=== PATIENT | female | born 1950 | race Caucasian/White ===

== ENCOUNTER 2018-05-08 20:52 | Inpatient (IN) | payer OTHER ==
--- OUTSIDE RECORDS SUMMARY | 2018-05-08 20:54 | XMS REPORT | Clinical Summary ---
:1950 Author Organization [facility] Address [address] [place] [address] Care Team Providers Name Role Phone Greg Dunn MD Primary Care Provider Allergies No Known Allergies Medications Medication Sig Dispensed Refills Start Date End Date Status docusate sodium Take 1 capsule (100 60 capsule 0 01/08/2018 02/07/2018 (COLACE) 100 MG mg total) by mouth capsule 2 (two) times a day as needed for constipation for up to 30 days. acetaminophen-cod Take 2 tablets by 10 tablet 0 01/08/2018 01/22/2018 eine (TYLENOL mouth every 6 (six) WITH CODEINE #3) hours as needed for 300-30 mg per moderate pain for tablet up to 14 days. ibuprofen Take 1 tablet (600 20 tablet 0 01/08/2018 02/07/2018 (ADVIL,MOTRIN) mg total) by mouth 600 MG tablet every 6 (six) hours as needed for mild pain for up to 30 days. Active Problems Problem Noted Date Endometrial adenocarcinoma 01/07/2018 Encounters Date Type Specialty Care Team Description 02/24/2018 Office Visit Gynecologic Sang Becerra MD Endometrial Oncology adenocarcinoma (HCC) 02/18/2018 Telephone Gynecologic Sang Becerra MD Oncology 02/15/2018 Hospital Encounter Radiation Oncology Wang Frederick MD 02/10/2018 Office Visit Gynecologic Sang Becerra MD Malignant neoplasm of Oncology uterus, unspecified site (HCC) (Primary Dx) 01/22/2018 Office Visit Gynecologic Sang Becerra MD Endometrial Oncology adenocarcinoma (HCC) 01/10/2018 Telephone Obstetrics and Sang Becerra MD Gynecology 01/10/2018 Patient Outreach Quality Alma Rosa Ventura MA 01/07/2018 Anesthesia Event Obstetrics and [facility] Gynecology Bev agustin NP 01/07/2018 Surgery Obstetrics and Sang Becerra MD ROBOTIC HYSTERECTOMY, Gynecology BILATERAL SALPINGO OOPHORECTOMY, BILATERAL PELVIC LYMPH NODE DISSECTION 01/07/2018 - Hospital Encounter Obstetrics and Sang Becerra MD Sarcoma, 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 Telephone Gynecologic Sang Becerra MD Oncology 01/02/2018 Hospital Encounter Radiology Sang Becerra MD Endometrial cancer (HCC) 01/02/2018 Pre-Admit Testing Pre-Admission Sang Becerra MD Pre-op testing Appointment Testing 12/25/2017 Office Visit Gynecologic Sang Becerra MD Endometrial cancer Oncology ([facility]) (Primary Dx) after 05/07/2017 Family History Medical History Relation Name Comments Lung cancer Father Colon cancer Mother Relation Name Status Comments Father Mother Social History Tobacco Use Types Packs/Day Years Used Date Never Smoker Smokeless Tobacco: Never Used Alcohol Use Drinks/Week oz/Week Comments No Sex Assigned at Date Recorded Not on file Job Start Date Occupation Industry Not on file Not on file Not on file Travel History Travel Start Travel End No recent travel history available. Last Filed Vital Signs Vital Sign Reading Time Taken Blood Pressure 144/84 02/24/2018 10:30 AM [employer]KE[employer] INSPECT[employer] Pulse 66 02/24/2018 10:30 AM [employer] INSPECT[employer] Temperature 36.6 C (97.9 F) 01/08/2018 7:48 AM CDT Respiratory Rate 19 01/08/2018 7:48 AM CDT Oxygen Saturation 97% 01/08/2018 7:48 AM CDT Inhaled Oxygen Concentration - - Weight 88.5 kg (195 lb) 02/24/2018 10:30 AM [employer]KEIN INSPECTOR Height 170.2 cm (5' 7") 01/22/2018 9:52 AM [employer]KEIN INSPECTOR Body Mass Index 30.54 02/24/2018 10:30 AM SKEIN INSPECTOR Plan of Treatment Date Type Specialty Care Team Description 06/23/2018 Office Visit Gynecologic Oncology Sang Becerra MD [address] [address] Health Maintenance Due Date Last Done Comments CERVICAL CANCER SCREENING 1973 BREAST CANCER SCREENING 2002 COLON CANCER SCREENING 2002 SHINGLES VACCINES (#1) 2002 65+ PNEUMOCOCCAL VACCINE (1 of 2 - PCV13) 2017 PNEUMOCOCCAL POLYSACCHARIDE VACCINE AGE 65 AND OVER 2017 INFLUENZA VACCINE 10/16/2017 Procedures Procedure Name Priority Date/Time Associated Comments Diagnosis ESTIMATED GFR Routine 01/08/2018 4:26 Results for this AM CDT procedure are in the results section. BASIC METABOLIC PANEL Routine 01/08/2018 4:26 Results for this AM CDT procedure are in the results section. CBC HEMOGRAM Routine 01/08/2018 4:26 Results for this AM CDT procedure are in the results section. SURGICAL PATHOLOGY Routine 01/07/2018 1:07 Results for this REQUEST PM CDT procedure are in the results section. SURGICAL PATHOLOGY Routine 01/07/2018 1:07 Results for this REQUEST PM CDT procedure are in the results section. MISCELLANEOUS REFERRAL Routine 01/07/2018 1:07 Results for this TEST PM CDT procedure are in the results section. SURGICAL PATHOLOGY Routine 01/07/2018 12:07 Results for this REQUEST PM CDT procedure are in the results section. MS AN ELECTIVE Routine 01/07/2018 11:10 ENDOTRACHEAL AIRWAY AM CDT Procedure Note - [place] Montero CRNA - 01/07/2018 11:10 AM CDT Airway Date/Time: 01/07/2018 10:32 AM Performed by: FLORIDA MONTERO Authorized by: FLORIDA MONTERO Location: OR Urgency: Elective Difficult Airway: No Anesthesiologist: PARAMJIT BOWMAN Resident/COMPUTER ENGINEERING TECHNOLOGIST/AA: FLORIDA MONTERO Performed by: resident/COMPUTER ENGINEERING TECHNOLOGIST/AA Preoxygenated with 100% O2: Yes Mask Ventilation: Easy mask Final Airway Type: Endotracheal airway Final Endotracheal Airway: ETT Cuffed: Yes Technique Used: Direct laryngoscopy Devices/Methods Used in Placement: Intubating stylet Insertion Site: Oral Blade Type: Levin Laryngoscope Blade/Videolaryngoscope Blade Size: 2 ETT Size (mm): 7.0 Cuff at minimum occlusion pressure: Yes Measured from: Lips ETT to Lips (cm): 22 Placement Verified by: CO2 detection and direct visualization Laryngoscopic view: Grade I - full view of glottis Rapid Sequence Induction (RSI): No Modified RSI: No Number of Attempts at Approach: 1 Easy, atraumatic intubation; oral structures intact and unchanged HYSTERECTOMY, ABDOMINAL, 01/07/2018 9:30 AM CDT Sarcoma, endometrial LAPAROSCOPIC, ROBOT-ASSISTED stromal (HCC) Case Notes DAVINCI Special Needs DAVINCI US PELVIC Routine 01/02/2018 3:00 PM Endometrial cancer Results for this TRANSVAGINAL CDT (HCC) procedure are in the results section. TYPE AND SCREEN Routine 01/02/2018 12:41 PM Pre-op testing Results for this CDT procedure are in the results section. after 05/07/2017 Results Estimated GFR (01/08/2018 4:26 AM CDT) Estimated GFR 78 mL/min/1.73 m2 [facility] DEPARTMENT OF Comment: PATHOLOGY AND GENOMIC CatergoryUnitsInterpretation MEDICINE G1 >=90 Normal or high G2 60-89Mildly decreased W1z59-24Kwxaud to moderately decreased V2q04-41Kokfjmdsfh to severely decreased G4 15-29Severely decreased G5 <15Kidney failure The eGFR was calculated using the Chronic Kidney Disease Epidemiology Collaboration (CKD-EPI) equation. Interpretation is based on recommendations of the National Kidney Foundation-Kidney Disease Outcomes Quality Initiative (NKF-KDOQI) published in 2014. Specimen Plasma specimen Performing Organization Address City/State/Zipcode Phone Number [facility] DEPARTMENT OF PATHOLOGY AND [address] [place] [address] [employer] CBC hemogram (01/08/2018 4:26 AM CDT) WBC 9.87 4.50 - 11.00 k/uL [facility] DEPARTMENT OF PATHOLOGY AND GENOMIC MEDICINE RBC 3.91 (L) 4.20 - 5.50 m/uL [facility] DEPARTMENT OF PATHOLOGY AND GENOMIC MEDICINE HGB 10.9 (L) 12.0 - 16.0 g/dL [facility] DEPARTMENT OF PATHOLOGY AND GENOMIC MEDICINE HCT 34.6 (L) 37.0 - 47.0 % [facility] DEPARTMENT OF PATHOLOGY AND GENOMIC MEDICINE MCV 88.5 82.0 - 100.0 fL [facility] DEPARTMENT OF PATHOLOGY AND GENOMIC MEDICINE MCH 27.9 27.0 - 34.0 pg [facility] DEPARTMENT OF PATHOLOGY AND GENOMIC MEDICINE MCHC 31.5 31.0 - 37.0 g/dL [facility] DEPARTMENT OF PATHOLOGY AND GENOMIC MEDICINE RDW - SD 46.7 37.0 - 55.0 fL [facility] DEPARTMENT OF PATHOLOGY AND GENOMIC MEDICINE MPV 9.2 8.8 - 13.2 fL [facility] DEPARTMENT OF PATHOLOGY AND GENOMIC MEDICINE Platelet count 293 150 - 400 k/uL [facility] DEPARTMENT OF PATHOLOGY AND GENOMIC MEDICINE Nucleated RBC 0.00 /100 WBC [facility] DEPARTMENT OF PATHOLOGY AND GENOMIC MEDICINE Specimen Blood Performing Organization Address [facility] Phone Number [facility] DEPARTMENT OF PATHOLOGY AND [address] [place] [address] Basic metabolic panel (01/08/2018 4:26 AM CDT) Sodium 141 135 - 148 mEq/L [facility] DEPARTMENT OF PATHOLOGY AND GENOMIC MEDICINE Potassium 3.9 3.5 - 5.0 mEq/L [facility] DEPARTMENT OF PATHOLOGY AND GENOMIC MEDICINE Chloride 106 98 - 112 mEq/L [facility] DEPARTMENT OF PATHOLOGY AND GENOMIC MEDICINE CO2 24 24 - 31 mEq/L [facility] DEPARTMENT OF PATHOLOGY AND GENOMIC MEDICINE Anion gap 11@ANIO 7 - 15 mEq/L [facility] DEPARTMENT OF PATHOLOGY AND GENOMIC MEDICINE BUN 11 8 - 23 mg/dL [facility] DEPARTMENT OF PATHOLOGY AND GENOMIC MEDICINE Creatinine 0.79 0.50 - 0.90 mg/dL [facility] DEPARTMENT OF PATHOLOGY AND GENOMIC MEDICINE Glucose 114 (H) 65 - 99 mg/dL [facility] DEPARTMENT OF PATHOLOGY AND GENOMIC MEDICINE Calcium 8.7 (L) 8.8 - 10.2 mg/dL [facility] DEPARTMENT OF PATHOLOGY AND GENOMIC MEDICINE Specimen Plasma specimen Performing Organization Address City/[facility] Phone Number [facility] DEPARTMENT OF PATHOLOGY AND [address] [place] [id number] [place] [address] Miscellaneous referral test (01/07/2018 1:07 PM CDT) [facility] test name MLH1 [facility] test result see note [facility] REF LAB Comment: MLH1 Promoter Methylation, Paraffin [facility] test code [id number] MLH1 Promoter Methylation Positive abnormal MLH1 promoter methylation was detected. This result has been reviewed and approved by Eunice Dye M.D. TEST INFORMATION: MLH1 Promoter Methylation, Paraffin MLH1 methylation is common in sporadic microsatellite unstable tumors, like colorectal cancer and endometrial cancer, and rarely occurs in Mora syndrome (hereditary non-polyposis colon cancer or HNPCC). Therefore, the presence of MLH1 methylation suggests that the tumor is sporadic and not associated with Mora syndrome. However, since there have been rare reports of Mora syndrome-associated MLH1 methylation, all results should be interpreted within the clinical context. The lack of MLH1 methylation in a mismatch repair deficient tumor suggests that it may be associated with Mora syndrome, and germline evaluation is suggested.Finally, low level MLH1 methylation is not reported as positive, since it does not correlate with MLH1 inactivation and microsatellite instability. METHODOLOGY: DNA is isolated from tumor tissue microdissected from prepared slides. DNA is treated with sodium bisulfite, followed by amplification of a segment of the MLH1 promoter region using methylation specific real-time PCR. The MLH1 methylation level is calculated by comparison to the amplification of a reference gene. LIMITATIONS: Methylation at locations other than those covered by the primers and probes will not be detected. Results of this test must always be interpreted within the clinical context and other relevant data, and should not be used alone for a diagnosis of malignancy. This test is not intended to detect minimal residual disease. ANALYTICAL SENSITIVITY: Methylation levels below 10 percent are reported as negative. This test is performed pursuant to an agreement with [employer] Test developed and characteristics determined by [employer]. See Compliance Statement B: [facility]/CS - - - - - - - - - - - - - - - - - - - - - - - - - - - - - - Block ID [id number] ---- Order comments MLH1 Promoter Methylation, Paraffin UTERUS BLOCK [id number] Test performed by: [facility] [address] [place], [place] [id number] Narrative Performed At UTERUS BLOCK [facility] [id number] Performing Organization Address City/State/Zipcode Phone Number [facility] [address] [place] [address] [place] [facility] [address] [place] [address] Surgical pathology request (01/07/2018 1:07 PM CDT)Only the most recent of3 resultswithin the time period is included. [facility] DEPARTMENT OF PATHOLOGY AND GENOMIC MEDICINE Surgical pathology See link below for PDF Lab [facility] DEPARTMENT OF report Report PATHOLOGY AND GENOMIC MEDICINE Result status This is Supplemental Report [facility] DEPARTMENT OF for [id number] PATHOLOGY AND GENOMIC MEDICINE Performing Organization Address City/State/Zipcode Phone Number [facility] DEPARTMENT OF PATHOLOGY AND [address] [place] [id number] GENOMIC MEDICINE US Pelvic Transvaginal (01/02/2018 3:00 PM CDT) Narrative Performed At EXAMINATION:US PELVIC TRANSVAGINAL RADIANT CLINICAL HISTORY:C54.1 Malignant neoplasm of endometrium, endometrial cancer COMPARISON:None. TECHNIQUE:Transabdominal and transvaginal ultrasound imaging of the pelvis. FINDINGS: UTERUS:The uterus measures 8.4 x 5.0 x 5.4 cm.No uterine fibroids identified.. ENDOMETRIUM: There is marked expansion of the endometrial cavity with heterogeneous mass, measures 2.3 x 5.8 cm on sagittal image. OVARIES/ADNEXA:The right ovary measures 2.1 x 1.5 x 1.8 cm.The left ovary measures 1.7 x 1.2 x 1.4 cm. There are some subcentimeter cysts within the ovaries. PELVIS:No free fluid. IMPRESSION: 1.Marked expansion of the endometrial cavity with heterogeneous mass consistent with clinically described endometrial cancer. MRI of the pelvis with and without contrast can be obtained for further staging as indicated. 2.Additional findings as above. [facility]-[id number] Procedure Note Interface, Radiology Results Incoming - 01/02/2018 5:35 PM CDT EXAMINATION: US PELVIC TRANSVAGINAL CLINICAL HISTORY: C54.1 Malignant neoplasm of endometrium, endometrial cancer COMPARISON: None. TECHNIQUE: Transabdominal and transvaginal ultrasound imaging of the pelvis. FINDINGS: UTERUS: The uterus measures 8.4 x 5.0 x 5.4 cm. No uterine fibroids identified.. ENDOMETRIUM: There is marked expansion of the endometrial cavity with heterogeneous mass, measures 2.3 x 5.8 cm on sagittal image. OVARIES/ADNEXA: The right ovary measures 2.1 x 1.5 x 1.8 cm. The left ovary measures 1.7 x 1.2 x 1.4 cm. There are some subcentimeter cysts within the ovaries. PELVIS: No free fluid. IMPRESSION: 1. Marked expansion of the endometrial cavity with heterogeneous mass consistent with clinically described endometrial cancer. MRI of the pelvis with and without contrast can be obtained for further staging as indicated. 2. Additional findings as above. [facility]-[id number] Performing Organization Address City/State/Zipcode Phone Number [facility] [address] [place] [address] Type and screen (01/02/2018 12:41 PM CDT) ABO grouping A [facility] DEPARTMENT OF PATHOLOGY AND GENOMIC MEDICINE Rh type POS [facility] DEPARTMENT OF PATHOLOGY AND GENOMIC MEDICINE Antibody screen (gel) NEG [facility] DEPARTMENT OF PATHOLOGY AND GENOMIC MEDICINE Specimen Blood Performing Organization Address City/[facility] Phone Number [facility] DEPARTMENT OF PATHOLOGY AND [address] [place] [id number] GENOMIC MEDICINE after 05/07/2017 Insurance Payer Benefit Plan / Group Subscriber ID Type Phone Address [facility] Advance Directives Patient has advance care planning documents on file. For more information, please contact:Burke [id number] [place] [phone]
--- OUTSIDE RECORDS SUMMARY | 2018-05-08 20:55 | XMS REPORT ---
:1950 [facility] Address [address] [place] [address] Dr. [address] [place] [address] Care Team Providers Name Role Phone Unavailable Unavailable Unavailable Problems This patient has no known problems. Allergies, Adverse Reactions, Alerts This patient has no known allergies or adverse reactions. Medications This patient has no known medications.
[2018-05-08] MEDS ORDERED: ACETAMINOPHEN 500 MG TAB ONE ×2 (21:30→21:31)
[2018-05-08] MEDS ORDERED: NA CHLORIDE 0.9% 1,000 ML ONE ×2 (21:33→22:54)
[2018-05-08 21:49] LABS: Absolute Lymphocytes (CBC) 0.2 K/uL (0.7-4.9); Absolute Monocytes 0.4 K/uL (0.1-1.3); Basophils % 0.3 % (0-1.3); Eosinophils % 0.4 % (0-4.4); Hematocrit 38.8 % (36.0-45.0); Lymphocytes % 2.7 % (15.3-44.8); Monocytes % 6.1 % (3.3-12.3); RBC Red Blood Cell Count 4.62 M/uL (3.86-4.86)
[2018-05-08 22:04] LABS: Protime INR 1.01
[2018-05-08 22:18] LABS: ALT/SGPT 42 U/L (12-78); AST/SGOT 32 U/L (15-37); Albumin 3.9 g/dL (3.4-5.0); Alkaline Phosphatase 87 U/L (45-117); BUN Blood Urea Nitrogen 11 mg/dL (7-18); Bicarbonate 26 mmol/L (21-32); Bilirubin Direct 0.2 mg/dL (0-0.2); Bilirubin Total 0.6 mg/dL (0.2-1.0); CKMB Creatine Kinase MB < 1.0 ng/mL (0.3-3.6); Creatine Phosphokinase 49 U/L (26-192); Glucose Level 105 mg/dL (74-106); Lipase 111 U/L (73-393); Potassium 3.9 mmol/L (3.5-5.1); Protein, Total 7.6 g/dL (6.4-8.2); Sodium Level 141 mmol/L (136-145); Troponin (Emerg Dept Use Only) < 0.02 ng/mL (0.0-0.045)
[2018-05-08 22:29] LABS: Blood Morphology Comment NOT SEEN (NOT SEEN); Platelet Estimate ADEQ
[2018-05-09] MEDS ORDERED: NA CHLORIDE 0.9% 500 ML ONE (02:12)
[2018-05-09] MEDS ORDERED: IBUPROFEN 200 MG TAB PO ONE (02:12)
[2018-05-09 02:44] LABS: Urine Culture Reflex Order NOT NEEDED
[2018-05-09 02:55] LABS: Urine Bacteria <20 /HPF (<20); Urine Mucus 1+ /HPF (NONE SEEN); Urine RBC NONE SEEN /HPF (NONE SEEN)
--- NOTE | 2018-05-09 03:28 | ER ---
Nurse's Notes [facility] Name: Shantelle Shields Age: 67 yrs Sex: Female : 1950 Arrival Date: 05/08/2018 Time: 20:55 Bed 4 Private MD: Greg Dunn E Diagnosis: Fever presenting with conditions classified elsewhere;Sepsis, unspecified organism;Cystitis Presentation: 05/08 21:06 Presenting complaint: Patient states: Pt reports she started running fever around 5:36 ea this evening, she called the oncologist Dr. Cortez at [facility] referred her to urgent care. Pt reports her temp was 102.4 at urgent care and was told it would be better to go into the ED. Pt states she had radiation today and last Chemo treatment was Apr 22. Transition of care: patient was not received from another setting of care. Transition of care: patient was not received from another setting of care. Onset of symptoms was May 08, 2018. Risk Assessment: Do you want to hurt yourself or someone else? Patient reports no desire to harm self or others. Initial Sepsis Screen: Does the patient meet any 2 criteria? Temp <36.0*C (96.8*F)) or > 38.3*C (100.9*F). HR > 90 bpm. Yes Does the patient have a suspected source of infection? Yes:. Care prior to arrival: None. 21:06 Method Of Arrival: Ambulatory ea 21:06 Acuity: KIMBERLY 3 ea Triage Assessment: 21:11 General: Appears uncomfortable, Behavior is appropriate for age. Pain: Denies pain. ea Neuro: Level of Consciousness is awake, alert, obeys commands, Oriented to person, place, time, situation. Respiratory: Airway is patent Respiratory effort is even, unlabored, Respiratory pattern is regular, symmetrical. Derm: Skin is dry, Skin is pale, Skin temperature is warm. Historical: - Allergies: 21:11 No Known Allergies; ea - Home Meds: 21:11 Zofran (as hydrochloride) 4 mg Oral tab [Active]; ea - PMHx: 21:11 uterine cancer; ea - PSHx: 21:11 Knee surgery; ea - Immunization history:: Adult Immunizations up to date. - Social history:: Smoking status: Patient/guardian denies using tobacco. - Ebola Screening: : No symptoms or risks identified at this time. Screenin:20 Abuse screen: Denies threats or abuse. Nutritional screening: No deficits noted. tl2 Tuberculosis screening: No symptoms or risk factors identified. Fall Risk None identified. Assessment: 21:20 General: Appears in no apparent distress. uncomfortable, Behavior is calm, cooperative, tl2 appropriate for age, Reports chills for 0-12 hours, fever for. Pain: Denies pain. Neuro: Level of Consciousness is awake, alert, obeys commands, Oriented to person, place, time, situation. Cardiovascular: Denies chest pain. Respiratory: Airway is patent Respiratory effort is even, unlabored, Respiratory pattern is regular, symmetrical. GI: No signs and/or symptoms were reported involving the gastrointestinal system. : No signs and/or symptoms were reported regarding the genitourinary system. Derm: Skin is pink, warm \T\ dry. Skin temperature is hot. 22:30 Reassessment: Patient appears in no apparent distress at this time. Patient and/or tl2 family updated on plan of care and expected duration. Pain level reassessed. Patient is alert, oriented x 3, equal unlabored respirations, skin warm/dry/pink. 23:50 Reassessment: Patient appears in no apparent distress at this time. Patient and/or tl2 family updated on plan of care and expected duration. Pain level reassessed. Patient is alert, oriented x 3, equal unlabored respirations, skin warm/dry/pink. 05/09 00:20 Reassessment: Patient appears in no apparent distress at this time. pt taken to [facility] restroom by wheelchair. Pt states she feels slightly better. Will recheck temperature. 01:10 Reassessment: Patient appears in no apparent distress at this time. Patient and/or tl2 family updated on plan of care and expected duration. Pain level reassessed. Patient is alert, oriented x 3, equal unlabored respirations, skin warm/dry/pink. Patient states feeling better. 02:00 Reassessment: Patient appears in no apparent distress at this time. notified that 2 pt's temp is elevated, new orders see MAR. Vital Signs: 05/08 21:12 BP 135 / 57; Pulse 103; Resp 20; Temp 103(O); Pulse Ox 99% ; Weight 86.36 kg; Height 5 tl2 ft. 6 in. (167.64 cm); 21:53 Pulse 71; Resp 20; Pulse Ox 100% on R/A; tl2 22:36 Temp 102.8(O); oe 22:41 BP 108 / 51; Pulse 73; Resp 18; Temp 102.8(O); Pulse Ox 94% on R/A; tl2 23:40 BP 92 / 49; Pulse 66; Resp 17; Pulse Ox 99% ; rr5 05/09 00:27 BP 98 / 62; Pulse 61; Resp 18; Temp 100.4(O); Pulse Ox 95% on R/A; tl2 01:10 BP 98 / 56; Pulse 62; Resp 18; Pulse Ox 100% on R/A; tl2 02:00 BP 107 / 47; Pulse 66; Resp 17; Temp 101.4; Pulse Ox 98% ; rr5 03:22 BP 104 / 46; Pulse 79; Resp 18; Temp 100.2(O); Pulse Ox 98% on R/A; tl2 05/08 21:12 Body Mass Index 30.73 (86.36 kg, 167.64 cm) tl2 ED Course: 05/08 20:55 Patient arrived in ED. mr 20:56 Greg Dunn MD is Private Physician. mr 21:04 Jeannine Booker RN is Primary Nurse. tl2 21:10 Triage completed. ea 21:13 Arm band placed on left wrist. Patient placed in an exam room, on a stretcher, on pulse ea oximetry. 21:20 Patient has correct armband on for positive identification. Placed in gown. Bed in low tl2 position. 21:20 Inserted saline lock: 22 gauge in left antecubital area, using aseptic technique. Blood rr5 collected. 21:22 Arthur Deluca MD is Attending Physician. gs 05/09 03:27 Babar Lees MD is Hospitalizing Provider. gs 06:03 No provider procedures requiring assistance completed. Patient admitted, IV remains in tl2 place. Administered Medications: Discontinued: NS 0.9% (30 ml/kg) 30 ml/kg IV at bolus once; Sepsis Protocol 05/08 21:29 Drug: Acetaminophen 1000 mg Route: PO; tl2 23:30 Follow up: Response: Temperature is decreased tl2 21:30 Drug: NS 0.9% (30 ml/kg) 30 ml/kg {Note: first Liter started at 2130.} Route: IV; Rate: tl2 bolus; Site: left antecubital; 22:51 Follow up: IV Status: Order to discontinue infusion; IV Intake: 1000ml ; ordered to tl2 give second liter at 150 ml/hour 23:33 Drug: NS 0.9% 1000 ml Route: IV; Rate: 1 bolus; Site: left antecubital; tl2 05/09 01:30 Follow up: IV Status: Completed infusion; IV Intake: 1000ml tl2 02:09 Drug: Motrin 600 mg Route: PO; tl2 03:42 Follow up: Response: No adverse reaction; Temperature is decreased tl2 02:09 Drug: NS 0.9% 500 ml Route: IV; Rate: bolus; Site: left antecubital; tl2 03:42 Follow up: IV Status: Completed infusion; IV Intake: 500ml tl2 03:42 Drug: Rocephin - (cefTRIAXone) 1 grams Route: IVPB; Infused Over: 30 mins; Site: left tl2 antecubital; 04:00 Follow up: IV Status: Completed infusion tl2 06:21 Not Given (adminstered in [facility]): NS 0.9% 1000 ml IV at 125 ml/hr continuous tl2 Intake: 05/08 22:51 IV: 1000ml; Total: 1000ml. tl2 05/09 01:30 IV: 1000ml; Total: 2000ml. tl2 03:42 IV: 500ml; Total: 2500ml. tl2 Outcome: 03:28 Decision to Hospitalize by Provider. 06:03 Admitted to ER Hold. Please see [facility] for further documentation. tl2 06:03 Condition: stable 06:03 Discharge instructions given to patient, family, Instructed on the need for admit. 14:39 Patient left the ED. aj1 Signatures: Alexandrea Stubbs RN RN aj1 Melissa Lopez Taylor, RN RN tl2 Gabe Bass Elena, RN RN ea Starr, Gregory, MD MD gs Roque, Raymond, RN RN rr5 Corrections: (The following items were deleted from the chart) 05/08 21:28 21:12 Pulse 103bpm; Resp 20bpm; Pulse Ox 99%; Temp 103F Oral; 86.36 kg; Height 5 ft. 6 tl2 in.; BMI: 30.7; ea 21:53 21:20 Pulse 71bpm; Resp 20bpm; Pulse Ox 100% RA; tl2 tl2 05/09 02:10 01:58 Temp 101.4F Oral; tl2 tl2 03:54 03:22 BP 104 / 46; Pulse 79bpm; Resp 18bpm; Pulse Ox 98% RA; tl2 tl2
--- NOTE | 2018-05-09 03:29 | EDPHYS ---
Physician Documentation [facility] Name: Shantelle Shields Age: 67 yrs Sex: Female : 1950 Arrival Date: 05/08/2018 Time: 20:55 Bed 4 Private MD: Greg Dunn E ED Physician Arthur Deluca HPI: 05/09 03:48 This 67 yrs old Female presents to ER via Ambulatory with complaints of Fever.gs 03:48 Onset: The symptoms/episode began/occurred yesterday. Modifying factors: there are no gs obvious modifying factors. Associated signs and symptoms: Pertinent positives: chills, decreased appetite, myalgias, Pertinent negatives: cough. Severity of symptoms: At their worst the symptoms were severe in the emergency department the symptoms are unchanged. The patient has experienced similar episodes in the past, a few times. RECENT CHEMO AND RADIATION. Historical: - Allergies: 05/08 21:11 No Known Allergies; ea - Home Meds: 21:11 Zofran (as hydrochloride) 4 mg Oral tab [Active]; ea - PMHx: 21:11 uterine cancer; ea - PSHx: 21:11 Knee surgery; ea - Immunization history:: Adult Immunizations up to date. - Social history:: Smoking status: Patient/guardian denies using tobacco. - Ebola Screening: : No symptoms or risks identified at this time. ROS: 05/09 03:48 All other systems are negative. gs Exam: 03:48 Head/Face: Normocephalic, atraumatic. Eyes: Pupils equal round and reactive to light, gs extra-ocular motions intact. Lids and lashes normal. Conjunctiva and sclera are non-icteric and not injected. Cornea within normal limits. Periorbital areas with no swelling, redness, or edema. ENT: Nares patent. No nasal discharge, no septal abnormalities noted. Tympanic membranes are normal and external auditory canals are clear. Oropharynx with no redness, swelling, or masses, exudates, or evidence of obstruction, uvula midline. Mucous membranes moist. Neck: Trachea midline, no thyromegaly or masses palpated, and no cervical lymphadenopathy. Supple, full range of motion without nuchal rigidity, or vertebral point tenderness. No Meningismus. Chest/axilla: Normal chest wall appearance and motion. Nontender with no deformity. No lesions are appreciated. Cardiovascular: Regular rate and rhythm with a normal S1 and S2. No gallops, murmurs, or rubs. Normal PMI, no JVD. No pulse deficits. Respiratory: Lungs have equal breath sounds bilaterally, clear to auscultation and percussion. No rales, rhonchi or wheezes noted. No increased work of breathing, no retractions or nasal flaring. Abdomen/GI: Soft, non-tender, with normal bowel sounds. No distension or tympany. No guarding or rebound. No evidence of tenderness throughout. Back: No spinal tenderness. No costovertebral tenderness. Full range of motion. Skin: Warm, dry with normal turgor. Normal color with no rashes, no lesions, and no evidence of cellulitis. MS/ Extremity: Pulses equal, no cyanosis. Neurovascular intact. Full, normal range of motion. Neuro: Awake and alert, GCS 15, oriented to person, place, time, and situation. Cranial nerves II-XII grossly intact. Motor strength 5/5 in all extremities. Sensory grossly intact. Cerebellar exam normal. Normal gait. 03:48 Constitutional: The patient appears alert, awake, uncomfortable. 03:48 ECG was reviewed by the Attending Physician. Vital Signs: 05/08 21:12 BP 135 / 57; Pulse 103; Resp 20; Temp 103(O); Pulse Ox 99% ; Weight 86.36 kg; Height 5 tl2 ft. 6 in. (167.64 cm); 21:53 Pulse 71; Resp 20; Pulse Ox 100% on R/A; tl2 22:36 Temp 102.8(O); oe 22:41 BP 108 / 51; Pulse 73; Resp 18; Temp 102.8(O); Pulse Ox 94% on R/A; tl2 23:40 BP 92 / 49; Pulse 66; Resp 17; Pulse Ox 99% ; rr5 05/09 00:27 BP 98 / 62; Pulse 61; Resp 18; Temp 100.4(O); Pulse Ox 95% on R/A; tl2 01:10 BP 98 / 56; Pulse 62; Resp 18; Pulse Ox 100% on R/A; tl2 02:00 BP 107 / 47; Pulse 66; Resp 17; Temp 101.4; Pulse Ox 98% ; rr5 03:22 BP 104 / 46; Pulse 79; Resp 18; Temp 100.2(O); Pulse Ox 98% on R/A; tl2 05/08 21:12 Body Mass Index 30.73 (86.36 kg, 167.64 cm) tl2 MDM: 05/08 22:03 Patient medically screened. 05/09 03:48 Differential diagnosis: bronchitis, pneumonia UTI, gastroenteritis. Data reviewed: vital signs, nurses notes, lab test result(s), EKG, radiologic studies. Response to treatment: the patient's symptoms have mildly improved after treatment, and as a result, I will admit patient. 05/08 21:28 Order name: Basic Metabolic Panel 2 05/08 21:28 Order name: Blood Culture Adult (2) tl2 05/08 21:28 Order name: CBC with Diff tl2 05/08 21:28 Order name: Ckmb 2 05/08 21:28 Order name: CPK 2 05/08 21:28 Order name: Lactate 2 05/08 21:28 Order name: LFT's 2 05/08 21:28 Order name: Lipase tl2 05/08 21:28 Order name: Procalcitonin tl2 05/08 21:28 Order name: Protime (+inr) tl2 05/08 21:28 Order name: Ptt, Activated tl2 05/08 21:28 Order name: Troponin (emerg Dept Use Only) tl2 05/08 21:28 Order name: Urine Microscopic Only 2 05/08 21:50 Order name: CBC with Automated Diff; Complete Time: 23:29 EDMS 05/08 22:05 Order name: Flu 05/08 22:05 Order name: Protime (+INR); Complete Time: 23:29 EDMS 05/08 22:05 Order name: PTT, Activated Partial Thromb; Complete Time: 23:29 EDMS 05/08 22:14 Order name: Lactate; Complete Time: 23:29 EDMS 05/08 22:19 Order name: Basic Metabolic Panel; Complete Time: 23:29 EDMS 05/08 22:19 Order name: Liver (Hepatic) Function; Complete Time: 23:29 EDMS 05/08 22:19 Order name: Creatine Phosphokinase; Complete Time: 23:29 EDMS 05/08 22:19 Order name: CKMB Creatine Kinase MB; Complete Time: 23:29 EDMS 05/08 22:19 Order name: Troponin (Emerg Dept Use Only); Complete Time: 23:29 EDMS 05/08 22:19 Order name: Lipase; Complete Time: 23:29 EDMS 05/08 22:25 Order name: Procalcitonin; Complete Time: 23:29 EDMS 05/08 22:30 Order name: Manual Differential; Complete Time: 23:29 EDMS 05/08 22:54 Order name: Influenza Screen (A ; Complete Time: 23:29 EDMS 05/08 23:34 Order name: Lactate tl2 05/09 00:38 Order name: Urine Culture tl2 05/09 00:47 Order name: Lactate; Complete Time: 01:43 EDMS 05/08 21:28 Order name: Chest Single View XRAY tl2 05/08 21:28 Order name: Accucheck; Complete Time: 21:29 tl2 05/08 21:28 Order name: Cardiac monitoring; Complete Time: 21:29 tl2 05/08 21:28 Order name: EKG - Nurse/Tech; Complete Time: 21:41 tl2 05/08 21:28 Order name: IV Saline Lock - Large Bore; Complete Time: 21:29 tl2 05/08 21:28 Order name: Labs collected and sent; Complete Time: 21:29 tl2 05/08 21:28 Order name: O2 Per Protocol; Complete Time: 21:29 tl2 05/08 21:28 Order name: O2 Sat Monitoring; Complete Time: 21:29 tl2 05/08 21:28 Order name: Urine Dipstick-Ancillary (obtain specimen); Complete Time: 00:21 2 05/09 02:55 Order name: Urine Microscopic Only; Complete Time: 03:15 EDMS 05/09 07:45 Order name: RAD EDMS 05/09 09:27 Order name: Basic Metabolic Panel EDMS 05/09 09:27 Order name: Magnesium EDDC EC:48 Rate is 69 beats/min. Rhythm is regular. IL interval is normal. QRS interval is normal. gs QT interval is normal. T waves are Normal. No ST changes noted. Clinical impression: NSR w/ Non-specific ST/T Changes. Interpreted by me. Administered Medications: Discontinued: NS 0.9% (30 ml/kg) 30 ml/kg IV at bolus once; Sepsis Protocol 05/08 21:29 Drug: Acetaminophen 1000 mg Route: PO; tl2 23:30 Follow up: Response: Temperature is decreased tl2 21:30 Drug: NS 0.9% (30 ml/kg) 30 ml/kg {Note: first Liter started at 2130.} Route: IV; Rate: tl2 bolus; Site: left antecubital; 22:51 Follow up: IV Status: Order to discontinue infusion; IV Intake: 1000ml ; ordered to tl2 give second liter at 150 ml/hour 23:33 Drug: NS 0.9% 1000 ml Route: IV; Rate: 1 bolus; Site: left antecubital; tl2 02 01:30 Follow up: IV Status: Completed infusion; IV Intake: 1000ml tl2 02:09 Drug: Motrin 600 mg Route: PO; tl2 03:42 Follow up: Response: No adverse reaction; Temperature is decreased tl2 02:09 Drug: NS 0.9% 500 ml Route: IV; Rate: bolus; Site: left antecubital; tl2 03:42 Follow up: IV Status: Completed infusion; IV Intake: 500ml tl2 03:42 Drug: Rocephin - (cefTRIAXone) 1 grams Route: IVPB; Infused Over: 30 mins; Site: left tl2 antecubital; 04:00 Follow up: IV Status: Completed infusion tl2 06:21 Not Given (adminstered in [facility]): NS 0.9% 1000 ml IV at 125 ml/hr continuous tl2 Disposition: 05/09/18 03:28 Hospitalization ordered by Babar Lees for Inpatient Admission. Preliminary diagnosis are Fever presenting with conditions classified elsewhere, Sepsis, unspecified organism, Cystitis. - Bed requested for Intensive Care Unit. - Status is Inpatient Admission. aj1 - Condition is Stable. - Problem is new. - Symptoms have improved. UTI on Admission? Yes Signatures: Dispatcher [employer] EDAlexandrea Mancia RN RN aj1 Radha Romero RN RN kl Knox, Taylor, RN RN tl2 Kya Doran RN RN ea Starr, Gregory, MD MD gs Botello, Elizabeth eb Corrections: (The following items were deleted from the chart) 05:08 03:28 Hospitalization Ordered by Babar Lees MD for Inpatient Admission. Preliminary kl diagnosis is Fever presenting with conditions classified elsewhere; Sepsis, unspecified organism; Cystitis. Bed requested for Telemetry/MedSurg (Inpatient). Status is Inpatient Admission. Condition is Stable. Problem is new. Symptoms have improved. UTI on Admission? Yes. 05:57 05:08 05/09/2018 03:28 Hospitalization Ordered by Babar Lees MD for Inpatient kl Admission. Preliminary diagnosis is Fever presenting with conditions classified elsewhere; Sepsis, unspecified organism; Cystitis. Bed requested for [facility] ER HOLD. Status is Inpatient Admission. Condition is Stable. Problem is new. Symptoms have improved. UTI on Admission? Yes. 08:49 05:57 05/09/2018 03:28 Hospitalization Ordered by Babar Lees MD for Inpatient eb Admission. Preliminary diagnosis is Fever presenting with conditions classified elsewhere; Sepsis, unspecified organism; Cystitis. Bed requested for Telemetry/MedSurg (Inpatient). Status is Inpatient Admission. Condition is Stable. Problem is new. Symptoms have improved. UTI on Admission? Yes. 10:22 08:49 05/09/2018 03:28 Hospitalization Ordered by Babar Lees MD for Inpatient eb Admission. Preliminary diagnosis is Fever presenting with conditions classified elsewhere; Sepsis, unspecified organism; Cystitis. Bed requested for Intensive Care Unit. Status is Inpatient Admission. Condition is Stable. Problem is new. Symptoms have improved. UTI on Admission? Yes. eb 14:39 10:22 05/09/2018 03:28 Hospitalization Ordered by Babar Lees MD for Inpatient aj1 Admission. Preliminary diagnosis is Fever presenting with conditions classified elsewhere; Sepsis, unspecified organism; Cystitis. Bed requested for Intensive Care Unit. Status is Inpatient Admission. Condition is Stable. Problem is new. Symptoms have improved. UTI on Admission? Yes. eb
[2018-05-09] MEDS ORDERED: CEFTRIAXONE/SWI 1gm 1 GM/10 ML SYR ONE (03:37)
--- NOTE | 2018-05-09 05:10 | P.HP ---
Certification for Inpatient Patient admitted to: Inpatient With expected LOS: >2 Midnights Practitioner: I am a practitioner with admitting privileges, knowledge of patient current condition, hospital course, and medical plan of care. Services: Services provided to patient in accordance with Admission requirements found in Title 42 Section 412.3 of the Code of Federal Regulations Patient History Date of Service: 05/09/18 Reason for admission: sepsis, UTI History of Present Illness: Ms Shields is a 67 years old woman with history of urterine cancer, she is on ongoing chemo and radiation therapy, who came to ED complaining of fever and nausea. Her symptoms started last evening, temp was 102.3 F. Her oncologist referred her to an urgent care clinic. Since she was found febrile, was advised to come to ED for further evaluation. She denied any cough, SOB, dysuria. Her temp at arrival was 103.0F. She has diarrhea due to radiation therapy. She denied abdominal pain. Lab work remarkable for WBC 6.7K, but has 8% bands with elevated lactate. Procalcitonin is normal. UA is abnormal consistent with UTI. CXR shows no acute infiltrate, awaiting radiology report. Home medications list reviewed: Yes - Past Medical/Surgical History -: uterine cancer -: knee surgery - Family History Family History: Reviewed- Non-Contributory - Social History Smoking Status: Never smoker Alcohol use: No CD- Drugs: No Place of Residence: Home Review of Systems 10-point ROS is otherwise unremarkable Physical Examination - Physical Exam General: Alert, In no apparent distress HEENT: Atraumatic, PERRLA, Mucous membr. moist/pink, EOMI, Sclerae nonicteric Neck: Supple, 2+ carotid pulse no bruit, No LAD, Without JVD or thyroid abnormality Respiratory: Clear to auscultation bilaterally, Normal air movement Cardiovascular: Regular rate/rhythm, Normal S1 S2 Gastrointestinal: Normal bowel sounds, No tenderness Musculoskeletal: No tenderness Integumentary: No rashes Neurological: Normal speech, Normal strength at 5/5 x4 extr, Normal tone, Normal affect Lymphatics: No axilla or inguinal lymphadenopathy - Studies Laboratory Data (last 24 hrs) 05/08/18 21:20: PT 11.9, INR 1.01, APTT 30.0 05/08/18 21:20: WBC 6.7, Hgb 12.6, Hct 38.8, Plt Count 184 05/08/18 21:20: Sodium 141, Potassium 3.9, BUN 11, Creatinine 0.92, Glucose 105 , Total Bilirubin 0.6, AST 32, ALT 42, Alkaline Phosphatase 87, Lipase 111 Microbiology Data (last 24 hrs): 05/08/18 22:25 Nasopharnyx Influenza Type A Antigen Screen - Final 05/08/18 22:25 Nasopharnyx Influenza Type B Antigen Screen - Final Assessment and Plan - Problems (Diagnosis) (1) Sepsis Current Visit: Yes Status: Acute Qualifiers: Sepsis type: sepsis due to unspecified organism Qualified Code(s): A41.9 - Sepsis, unspecified organism (2) UTI (urinary tract infection) Current Visit: Yes Status: Acute Qualifiers: Urinary tract infection type: acute cystitis Hematuria presence: without hematuria Qualified Code(s): N30.00 - Acute cystitis without hematuria (3) Uterine cancer Current Visit: Yes Status: Acute Qualifiers: Malignant neoplasm of uterus location: unspecified site of uterus Qualified Code(s): C55 - Malignant neoplasm of uterus, part unspecified - Plan The patient will be admitted to the hospital due to sepsis. UA abnormal consistent with UTI, will start empiric treatment with IV Rocephin. Since the patient is immunocompromised, has faisal fever, will start Oseltamivir empirically as well, despite negative flu test. - Advance Directives Does patient have a Living Will: No Does patient have a Durable POA for Healthcare: No - Code Status/Comfort Care Code Status Assessed: Yes Code Status: Full Code
[2018-05-09] MEDS ORDERED: NA CHLORIDE 0.9% 1,000 ML IV SCH (06:00)
[2018-05-09] MEDS ORDERED: NA CHLORIDE 0.9% 1,000 ML ONE (06:33)
[2018-05-09] MEDS ORDERED: NA CHLORIDE 0.9% 500 ML IV ONE (07:17)
--- NOTE | 2018-05-09 07:44 | RAD REPORT ---
EXAM DESCRIPTION: RAD - Chest Single View - 05/08/2018 10:20 pm CLINICAL HISTORY: Fever, uterine cancer, possible neutropenic fever COMPARISON: December 31, 2017 TECHNIQUE: AP portable chest image was obtained 2218 hours . FINDINGS: Lung volumes are low. No peripheral mass, consolidation, failure or volume overload. Lung markings are similar to comparison. Heart and vasculature are normal. No measurable pleural effusion and no pneumothorax. No acute bony abnormality seen. No acute aortic findings suspected. IMPRESSION: No acute cardiopulmonary process. No significant interval change from December 2017.
[2018-05-09] MEDS ORDERED: PNEUMOCOCCAL VACCINE 0.5 ML IMVAC ONE (08:00)
[2018-05-09] MEDS ORDERED: INFLUENZA VACCINE (for 3y+) 0.5 ML DOSE IMVAC ONE (08:00)
[2018-05-09] MEDS: NACHLORIDE 0.45% 1,000 ML IV SCH ×3 (08:00→20:42)
[2018-05-09] MEDS: ENOXAPARIN 40 MG/0.4 ML SQ SCH ×2 (09:00→18:23)
[2018-05-09] MEDS ORDERED: CEFTRIAXONE 1 GM/NS 50 ML 1 GM/50 ML BAG IV SCH (09:00)
[2018-05-09] MEDS: OSELTAMIVIR 75 MG CAP PO SCH ×2 (09:00→20:41)
--- NOTE | 2018-05-09 09:18 | EKG ---
Test Date: 2018-05-08 Test Time: 21:36:55 Glove Pairer: BRITTNI MEASUREMENT RESULTS: Intervals: Rate: 69 SC: 156 QRSD: 66 QT: 372 QTc: 398 Julian: P: -12 SC: 156 QRS: 4 T: -4 INTERPRETIVE STATEMENTS: Normal sinus rhythm Normal ECG Compared to ECG 05/14/2011 14:02:08 Sinus bradycardia no longer present Electronically Signed On 05-09-18 08:32:59 DOMAIN ARCHITECT by Wu Molina
[2018-05-09 09:21] LABS: Potassium 3.4 mmol/L (3.5-5.1)
[2018-05-09] MEDS ORDERED: OSELTAMIVIR 75 MG CAP ONE (09:30)
[2018-05-09] MEDS ORDERED: ENOXAPARIN 40 MG/0.4 ML SQ ONE (09:30)
[2018-05-09] MEDS: ACETAMINOPHEN 500 MG TAB PO PRN (10:25)
[2018-05-09] MEDS ORDERED: ACETAMINOPHEN 500 MG TAB ONE (10:28)
[2018-05-09] MEDS ORDERED: POTASSIUM CL SA 10 MEQ TAB PO ONE ×2 (12:40→12:44)
[2018-05-09] MEDS ORDERED: NACHLORIDE 0.45% 1,000 ML IV ONE (12:44)
[2018-05-09] MEDS: ONDANSETRON 4 MG/2 ML VIAL IV PRN ×2 (13:23→18:31)
[2018-05-09] MEDS ORDERED: ONDANSETRON 4 MG/2 ML VIAL ONE (13:26)
--- NOTE | 2018-05-09 15:41 | P.PN ---
Subjective Date of Service: 05/09/18 Primary Care Provider: Dr. Dunn; Oncology-Dr. Caballero Chief Complaint: sepsis, UTI Subjective: Other (Patient doing well. No significant diarrhea noted today. Still with fever.) Physical Examination - Vital Signs Temperature: 100.8 F Blood Pressure: 95/45 Pulse: 65 Respirations: 17 Pulse Ox (%): 94 - Physical Exam General: Alert, In no apparent distress, Oriented x3, Cooperative HEENT: Atraumatic, Normocephalic, Mucous membr. moist/pink Neck: Supple Respiratory: Clear to auscultation bilaterally, Normal air movement Cardiovascular: Normal pulses, Regular rate/rhythm Gastrointestinal: Normal bowel sounds, Soft and benign, Non-distended, No tenderness, No masses, No rebound, No guarding Musculoskeletal: No erythema, No tenderness, No warmth Integumentary: No tenderness/swelling, No erythema, No warmth, No cyanosis Neurological: Normal speech, Normal strength at 5/5 x4 extr, Normal tone, Normal affect - Studies Laboratory Data (last 24 hrs) 05/08/18 21:20: PT 11.9, INR 1.01, APTT 30.0 05/08/18 21:20: WBC 6.7, Hgb 12.6, Hct 38.8, Plt Count 184 05/08/18 21:20: Sodium 141, Potassium 3.9, BUN 11, Creatinine 0.92, Glucose 105 , Total Bilirubin 0.6, AST 32, ALT 42, Alkaline Phosphatase 87, Lipase 111 Microbiology Data (last 24 hrs): 05/08/18 22:25 Nasopharnyx Influenza Type A Antigen Screen - Final 05/08/18 22:25 Nasopharnyx Influenza Type B Antigen Screen - Final Medications List Reviewed: Yes Assessment & Plan Discharge Plan: Home Plan to discharge in: Greater than 2 days Physician Review Additional Text: Impression: Fever, diarrhea with recent chemotherapy/radiation therapy for uterine cancer suspect sepsis due to UTI Plan: Patient remains on IV antibiotic therapy. Continue aggressive IV fluids. Pro calcitonin negative. Lactic acid improved with IV fluids. Blood pressure still slightly low. Will monitor closely. Clinically patient appears stable. Still with fever. Blood cultures and urine cultures obtained. Case updated with her oncologist who agrees with current plan of care. Will monitor closely. Time Spent Managing Pts Care (In Minutes): 55
[2018-05-09] MEDS: CEFTRIAXONE/SWI 1gm 1 GM/10 ML SYR IV SCH (20:42)
[2018-05-10] MEDS: CALCIUM CARBONATE CHEW 500MG TAB PO PRN ×4 (00:05→21:13)
[2018-05-10] MEDS: NACHLORIDE 0.45% 1,000 ML IV SCH ×3 (04:50→21:14)
[2018-05-10 05:13] LABS: Magnesium 1.9 mg/dL (1.8-2.4); Potassium 3.6 mmol/L (3.5-5.1)
[2018-05-10 06:09] LABS: Absolute Lymphocytes (CBC) 0.2 K/uL (0.7-4.9); Absolute Monocytes 0.5 K/uL (0.1-1.3); Basophils % 0.2 % (0-1.3); Eosinophils % 0.2 % (0-4.4); Hematocrit 31.7 % (36.0-45.0); Lymphocytes % 3.5 % (15.3-44.8); MPV 7.1 fL (7.6-11.3); Monocytes % 9.3 % (3.3-12.3); RBC Red Blood Cell Count 3.78 M/uL (3.86-4.86)
[2018-05-10] MEDS: ENOXAPARIN 40 MG/0.4 ML SQ SCH (08:00)
[2018-05-10] MEDS ORDERED: NACHLORIDE 0.45% 1,000 ML IV SCH (08:00)
[2018-05-10] MEDS: FAMOTIDINE 20 MG TAB PO SCH ×2 (08:01→21:14)
[2018-05-10] MEDS: OSELTAMIVIR 75 MG CAP PO SCH ×2 (08:01→21:13)
[2018-05-10] MEDS ORDERED: POTASSIUM CL SA 10 MEQ TAB PO ONE (09:00)
--- NOTE | 2018-05-10 10:11 | P.PN ---
Subjective Date of Service: 05/10/18 Primary Care Provider: Dr. Dunn; Oncology-Dr. Caballero Chief Complaint: sepsis, UTI Subjective: Other (Patient continues to improve. No more diarrhea noted. T-max 100.8 yesterday) Physical Examination - Vital Signs Temperature: 99.6 F Blood Pressure: 97/43 Pulse: 67 Respirations: 20 Pulse Ox (%): 100 - Physical Exam General: Alert, In no apparent distress, Oriented x3, Cooperative HEENT: Atraumatic, Normocephalic Neck: Supple Respiratory: Clear to auscultation bilaterally, Normal air movement Cardiovascular: Normal pulses, Regular rate/rhythm Gastrointestinal: Normal bowel sounds, Soft and benign, Non-distended, No tenderness, No masses, No rebound, No guarding Musculoskeletal: No erythema, No tenderness, No warmth Integumentary: No tenderness/swelling, No erythema, No warmth, No cyanosis Neurological: Normal speech, Normal strength at 5/5 x4 extr, Normal tone, Normal affect - Studies Microbiology Data (last 24 hrs): 05/09/18 00:35 Clean Catch Urine [place] Count - Final >100,000 CFU/ML. 05/09/18 00:35 Clean Catch Urine - Final Medications List Reviewed: Yes Assessment & Plan Discharge Plan: Home Plan to discharge in: 24 Hours Physician Review Additional Text: Impression: Fever, diarrhea with recent chemotherapy/radiation therapy for uterine cancer suspect sepsis due to UTI Anemia likely of chronic disease Plan: Patient appears improved. Clinically stable. Influenza negative. Blood cultures pending. Urine culture also pending. Patient on antibiotic therapy and Tamiflu. Will decrease IV fluids as she is taking good oral intake. Will transition patient from ICU to the floor. Will check iron and B12 studies. Will have physical therapy assess ambulation. Will continue monitor closely. Pro calcitonin initially normal now slightly elevated. Recheck chest x-ray today. Case discussed with her oncologist yesterday. Oncologist agrees plan of care. Patient desires to go home today. Anticipate home once cultures finalized and patient without fever for at least 24 hr. Anticipate discharge likely in the next 24-48 hr. Time Spent Managing Pts Care (In Minutes): 55
--- NOTE | 2018-05-10 10:33 | RAD REPORT ---
EXAM DESCRIPTION: RAD - Chest Pa And Lat (2 Views) - 05/10/2018 7:53 am CLINICAL HISTORY: follow up fever Chest pain. COMPARISON: Chest Single View dated 05/08/2018; Chest Pa And Lat (2 Views) dated 12/31/2017 FINDINGS: Mild linear atelectasis is present in the left lung base with trace pleural fluid. The lon gs are otherwise clear. The heart is upper limit normal in size. No displaced fractures.
[2018-05-10 11:35] LABS: Ferritin 145.8 ng/mL (8-388)
[2018-05-10] MEDS: ACETAMINOPHEN 500 MG TAB PO PRN (17:48)
[2018-05-10] MEDS: CEFTRIAXONE/SWI 1gm 1 GM/10 ML SYR IV SCH (21:13)
[2018-05-11] MEDS: NACHLORIDE 0.45% 1,000 ML IV SCH ×3 (04:37→22:12)
[2018-05-11 06:20] LABS: Magnesium 2.1 mg/dL (1.8-2.4); Potassium 3.6 mmol/L (3.5-5.1)
[2018-05-11 06:37] LABS: Absolute Lymphocytes (CBC) 0.2 K/uL (0.7-4.9); Absolute Monocytes 0.3 K/uL (0.1-1.3); Absolute Neutrophil 3.4 K/uL (1.8-8.0); Basophils % 0.4 % (0-1.3); Eosinophils % 1.4 % (0-4.4); Hematocrit 28.3 % (36.0-45.0); Lymphocytes % 4.8 % (15.3-44.8); MPV 7.5 fL (7.6-11.3); Monocytes % 8.3 % (3.3-12.3); RBC Red Blood Cell Count 3.37 M/uL (3.86-4.86)
[2018-05-11 08:16] LABS: Anisocytosis 1+; Blood Morphology Comment NOTED (NOT SEEN); Platelet Estimate ADEQ; Urine White Blood Cell Casts OK
[2018-05-11] MEDS ORDERED: POTASSIUM CL SA 10 MEQ TAB PO ONE (09:00)
[2018-05-11] MEDS: ENOXAPARIN 40 MG/0.4 ML SQ SCH (10:29)
[2018-05-11] MEDS: FAMOTIDINE 20 MG TAB PO SCH ×2 (10:30→21:07)
[2018-05-11] MEDS: OSELTAMIVIR 75 MG CAP PO SCH ×2 (10:30→21:07)
--- NOTE | 2018-05-11 10:32 | RAD REPORT ---
EXAM DESCRIPTION: CT - Abdomen Pelvis Wo Contrast - 05/11/2018 9:59 am CLINICAL HISTORY: Abdominal pain with diarrhea COMPARISON: None TECHNIQUE: Computed axial tomography from the diaphragm to the iliac crest was obtained. Oral contra st was given. IV contrast was not requested. All CT scans are performed using dose optimization technique as appropriate and may include automated exposure control or mA/KV adjustment according to patient size. FINDINGS: The evaluation of solid organs and vessels is limited secondary to the lack of IV contrast administration. The gallbladder is distended The liver, spleen, adrenals, pancreas and kidneys appear grossly normal. No ascites is seen. Small umbilical hernia There is no evidence of diverticulitis. The appendix is normal. A hysterectomy has been performed. A 2.9 centimeter low-density structure is present within the right adnexal. IMPRESSION: Gallbladder distention 2.9 centimeter low-density structure within the right adnexal probably representing an ovarian cyst. Followup pelvic ultrasound in a couple months is recommended for re-evaluation
--- NOTE | 2018-05-11 10:48 | P.PN ---
Subjective Date of Service: 05/11/18 Primary Care Provider: Dr. Dunn; Oncology-Dr. Caballero Chief Complaint: sepsis, UTI Subjective: Other (Patient appears stable. Improved overall. Had fever yesterday T-max 100.9. No significant abdominal pain, nausea and vomiting. No chest pain or shortness of breath.) Physical Examination - Vital Signs Temperature: 97.5 F Blood Pressure: 117/66 Pulse: 62 Respirations: 18 Pulse Ox (%): 98 - Physical Exam General: Alert, In no apparent distress, Oriented x3, Cooperative HEENT: Atraumatic Neck: Supple Respiratory: Clear to auscultation bilaterally, Normal air movement Cardiovascular: Normal pulses, Regular rate/rhythm Gastrointestinal: Normal bowel sounds, Soft and benign, Non-distended, No tenderness, No masses, No rebound, No guarding Musculoskeletal: No erythema, No tenderness, No warmth Integumentary: No erythema, No warmth, No cyanosis Neurological: Normal speech, Normal strength at 5/5 x4 extr, Normal tone, Normal affect - Studies Microbiology Data (last 24 hrs): 05/09/18 00:35 Clean Catch Urine [place] Count - Final >100,000 CFU/ML. 05/09/18 00:35 Clean Catch Urine - Final Medications List Reviewed: Yes Assessment & Plan Discharge Plan: Home Plan to discharge in: 48 Hours Physician Review Additional Text: Impression: Fever, diarrhea with recent hysterectomy/chemotherapy/radiation therapy for uterine cancer suspect sepsis due to UTI verses other CT scan showing 2.9 cm right adnexal structure likely ovarian cyst Anemia likely of chronic disease with iron and B12 deficiency Plan: Fever, diarrhea with recent hysterectomy/chemotherapy/radiation therapy for uterine cancer suspect sepsis due to UTI verses other: Continue IV antibiotic therapy. Encourage ambulation. Patient had fever yesterday. Continue to monitor closely. CT scan revealed 2.9 cm right adnexal structure likely ovarian cyst. Case discussed with radiology. Will obtain pelvic ultrasound to further evaluate. Will recheck pro calcitonin. Will discuss case with gynecology. I will also reach out to her oncologist to discuss case further. I will turn the service over to Dr. Arenas tomorrow. I will go over the plan of care with her. CT scan showing 2.9 cm right adnexal structure likely ovarian cyst: Discuss with radiology. Will get pelvic ultrasound to further evaluate. Will discuss case with gynecology. Anemia likely of chronic disease with iron and B12 deficiency: Will monitor hemoglobin. Will start IV iron and B12 supplementation. Patient may require transfusion if hemoglobin continues to fall. Time Spent Managing Pts Care (In Minutes): 55
[2018-05-11] MEDS: SOD FERRIC GLUC COMPLX/SUCROSE 125 MG in NA CHLORIDE 0.9% 100 ML IV SCH (12:27)
[2018-05-11] MEDS: CYANOCOBALAMIN 1,000 MCG TAB PO SCH (12:30)
[2018-05-11 13:28] LABS: Hematocrit 29.9 % (36.0-45.0)
--- NOTE | 2018-05-11 15:31 | RAD REPORT ---
EXAM DESCRIPTION: US - Pelvis Complete - 05/11/2018 2:53 pm CLINICAL HISTORY: Pelvic pain COMPARISON: CT May 11 FINDINGS: A hysterectomy has been performed. Neither ovary was visualized. The previously described 2.9 centimeter low-density structure within th e right adnexal was not visualized. Left adnexal unremarkable. No significant free fluid IMPRESSION: Hysterectomy Previously described 2.9 centimeter low-density structure within the right adnexal is not visualized on the current exam. It likely is still present but simply was not seen. It may represent an ovarian cyst. If the right ovary has been resected then a could represent a small hematoma or small abscess. A followup CT scan in a couple of days may be helpful for re-evaluation
[2018-05-11] MEDS ORDERED: LOPERAMIDE HCL 2 MG CAPSULE PO PRN (18:12)
[2018-05-11] MEDS: CEFTRIAXONE/SWI 1gm 1 GM/10 ML SYR IV SCH (21:06)
[2018-05-12] MEDS: ACETAMINOPHEN 500 MG TAB PO PRN (00:08)
[2018-05-12 06:04] LABS: Absolute Lymphocytes (CBC) 0.3 K/uL (0.7-4.9); Absolute Monocytes 0.4 K/uL (0.1-1.3); Absolute Neutrophil 2.4 K/uL (1.8-8.0); Basophils % 0.5 % (0-1.3); Eosinophils % 2.6 % (0-4.4); Hematocrit 30.6 % (36.0-45.0); Lymphocytes % 9.1 % (15.3-44.8); MPV 7.2 fL (7.6-11.3); Monocytes % 11.7 % (3.3-12.3); RBC Red Blood Cell Count 3.58 M/uL (3.86-4.86)
[2018-05-12 06:22] LABS: Magnesium 2.4 mg/dL (1.8-2.4); Potassium 3.5 mmol/L (3.5-5.1)
[2018-05-12] MEDS ORDERED: POTASSIUM CL SA 10 MEQ TAB PO ONE (09:00)
[2018-05-12] MEDS: SOD FERRIC GLUC COMPLX/SUCROSE 125 MG in NA CHLORIDE 0.9% 100 ML IV SCH (09:47)
[2018-05-12] MEDS: ENOXAPARIN 40 MG/0.4 ML SQ SCH (09:47)
[2018-05-12] MEDS: OSELTAMIVIR 75 MG CAP PO SCH (09:48)
[2018-05-12] MEDS: FAMOTIDINE 20 MG TAB PO SCH (09:48)
[2018-05-12] MEDS: CYANOCOBALAMIN 1,000 MCG TAB PO SCH (09:48)
[2018-05-12] MEDS: NACHLORIDE 0.45% 1,000 ML IV SCH (13:40)
--- NOTE | 2018-05-12 18:18 | P.DS ---
Admission Date: 05/09/18 Discharge Date: 05/12/18 Primary Care Provider: Dr. Dunn; Oncology-Dr. Caballero Reason for Admission: sepsis, UTI - Problems (1) Sepsis Current Visit: Yes Status: Resolved Qualifiers: Sepsis type: sepsis due to unspecified organism Qualified Code(s): A41.9 - Sepsis, unspecified organism (2) UTI (urinary tract infection) Current Visit: Yes Status: Suspected Qualifiers: Urinary tract infection type: acute cystitis Hematuria presence: without hematuria Qualified Code(s): N30.00 - Acute cystitis without hematuria (3) Uterine cancer Current Visit: Yes Status: Chronic Qualifiers: Malignant neoplasm of uterus location: unspecified site of uterus Qualified Code(s): C55 - Malignant neoplasm of uterus, part unspecified Brief History of Present Illness: Ms Shields is a 67 years old woman with history of urterine cancer, she is on ongoing chemo and radiation therapy, who came to ED complaining of fever and nausea. Her symptoms started last evening, temp was 102.3 F. Her oncologist referred her to an urgent care clinic. Since she was found febrile, was advised to come to ED for further evaluation. She denied any cough, SOB, dysuria. Her temp at arrival was 103.0F. She has diarrhea due to radiation therapy. She denied abdominal pain. Lab work remarkable for WBC 6.7K, but has 8% bands with elevated lactate. Procalcitonin is normal. UA is abnormal consistent with UTI. CXR shows no acute infiltrate, awaiting radiology report Hospital Course: Overall during the hospital stay patient remained stable. Initially patient was admitted to the hospital for signs and symptoms of sepsis. Patient initially had suspected UTI with large number of leuk esterase and bacteria noted on the UA. Urine culture however was contaminated. Repeat UA was not done as they would probably be false negative. Given the clinical symptoms of sepsis and symptoms of UTI patient was treated with presumed diagnosis of urinary tract infection here in the hospital. With IV antibiotics. Patient had marked improvement in her symptoms and thus was discharged home under stable condition was given prescription for oral antibiotics to be taken home. Patient remained fever free for 24 hr while here in the hospital. Patient's fever could also be secondary to recent chemotherapy and radiation therapy for her you drink cancer. Patient was encouraged to take oral fluids along with her medications that she takes at home. Patient was also asked to follow up with her primary care provider along with block feeder continue on chemo and radiation. CT scan showing 2.9 cm right adnexal structure likely ovarian cyst which she was asked f.u outpt with OBGYN. Vital Signs/Physical Exam: Temp Pulse Resp BP Pulse Ox 99.5 F 52 18 120/55 L 100 05/12/18 16:00 05/12/18 16:00 05/12/18 16:00 05/12/18 12:00 05/12/18 16:00 General: Alert, In no apparent distress HEENT: Atraumatic, PERRLA, EOMI Neck: Supple, JVD not distended Respiratory: Clear to auscultation bilaterally, Normal air movement Cardiovascular: Regular rate/rhythm, Normal S1 S2 Gastrointestinal: Normal bowel sounds, No tenderness Musculoskeletal: No tenderness Integumentary: No rashes Neurological: Normal speech, Normal tone, Normal affect Lymphatics: No axilla or inguinal lymphadenopathy Laboratory Data at Discharge: WBC 3.1 K/uL (4.3-10.9) L D 05/12/18 05:34 Hgb 10.1 g/dL (12.0-15.0) L 05/12/18 05:34 Hct 30.6 % (36.0-45.0) L 05/12/18 05:34 Plt Count 174 K/uL (152-406) 05/12/18 05:34 PT 11.9 SECONDS (9.5-12.5) 05/08/18 21:20 INR 1.01 05/08/18 21:20 APTT 30.0 SECONDS (24.3-36.9) 05/08/18 21:20 Sodium 144 mmol/L (136-145) 05/12/18 05:34 Potassium 3.5 mmol/L (3.5-5.1) 05/12/18 05:34 BUN 6 mg/dL (7-18) L 05/12/18 05:34 Creatinine 0.74 mg/dL (0.55-1.3) 05/12/18 05:34 Glucose 97 mg/dL (74-106) 05/12/18 05:34 Magnesium 2.4 mg/dL (1.8-2.4) 05/12/18 05:34 Total Bilirubin 0.6 mg/dL (0.2-1.0) 05/08/18 21:20 AST 32 U/L (15-37) 05/08/18 21:20 ALT 42 U/L (12-78) 05/08/18 21:20 Alkaline Phosphatase 87 U/L (45-117) 05/08/18 21:20 Lipase 111 U/L (73-393) 05/08/18 21:20 Home Medications: Ondansetron HCl [Zofran] 4 mg PO PRN PRN 05/09/18 Amox/Clavulanate [Augmentin 875-125 Tab] 875 mg PO BID #28 tab 05/12/18 New Medications: Amox/Clavulanate [Augmentin 875-125 Tab] 875 mg PO BID #28 tab
== END 2018-05-12 18:26 | disposition home or self-care (01) | DRG 872 ==
LOC: ER 20:52 → ERHOLD 05-09 05:06 → 3RD-ICU 05-09 14:04 → 2ND 05-10 12:20
PROVIDERS: ADMIT Internal Medicine; ATTEND Family Medicine
DX: A41.9 Sepsis, unspecified organism (principal); N30.00 Acute cystitis without hematuria; K52.0 Gastroenteritis and colitis due to radiation; C55 Malignant neoplasm of uterus, part unspecified; Y84.2 Radiological procedure and radiotherapy as the cause of abnormal reaction of the patient, or of later complication, without mention of misadventure at the time of the procedure; Y92.89 Other specified places as the place of occurrence of the external cause; R50.2 Drug induced fever; T45.1X5A Adverse effect of antineoplastic and immunosuppressive drugs, initial encounter; D64.9 Anemia, unspecified; E53.8 Deficiency of other specified B group vitamins
CPT/HCPCS: 36415; 71045; 71046; 74176; 76856; 80048; 80076; 81015; 82550; 82553; 82607; 82728; 82962; 83540; 83605; 83690; 83735; 84145; 84466; 84484; 85014; 85018; 85025; 85610; 85730; 87040; 87045; 87046; 87086; 87088; 87493; 87804; 93005; 96361; 96365; 96367; 97116; 97163; 97530; 99285; J0696; J1650; J2405; J2916; J7030